=== PATIENT | male | born 1990 | race Caucasian/White ===

== ENCOUNTER 2017-01-28 10:52 | Emergency (ER) | payer MEDICAID ==
[~2017-01-28] VITALS: Ht 188 cm; Wt 100.0 kg
[2017-01-28 10:54] VITALS: Ht 188 cm; Wt 100.0 kg
[2017-01-28] MEDS ORDERED: DIPHTH/TET/ACEL PERTUSS (ADULT) 0.5 ML VIAL IM* ONE (11:30)
[2017-01-28] MEDS ORDERED: LIDOCAINE 1% (MDV) 20 ML INJ SC ONE (11:30)
[2017-01-28] MEDS ORDERED: HYDR-906 PO (11:54)
[2017-01-28] MEDS ORDERED: CEPH500C PO (11:54)
[2017-01-28] MEDS ORDERED: SULF1TAB31 PO (11:54)
[2017-01-28] MEDS ORDERED: NAPR-688 PO (11:54)
--- NOTE | 2017-01-28 12:18 | ERD ---
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 Had bleeding at the site applied pressure. He is not sure when the last time he had a tetanus shot is. He has no other injuries. He is otherwise healthy. ROS All systems reviewed and are negative except as per history of present illness. Medications Home Meds Active Scripts Cephalexin* (Cephalexin*) 500 Mg Capsule, 500 MG PO Q8, #21 CAP Prov:DOMINGUEZ HERNÁNDEZ DO 01/28/17 Sulfamethoxazole/Trimethoprim* (Bactrim Ds* Tablet) 1 Each Tablet, 1 TAB PO BID , #10 TAB Prov:DOMINGUEZ HERNÁNDEZ DO 01/28/17 Hydrocodone/Acetaminophen ([place] 5-325 Tablet) 1 Each Tablet, 1 EACH PO Q6, #10 TAB Prov:DOMINGUEZ HERNÁNDEZ DO 01/28/17 Naproxen* (Naproxen*) 500 Mg Tablet, 500 MG PO BID Y for PAIN, #20 TAB Prov:DOMINGUEZ HERNÁNDEZ DO 01/28/17 Allergies Allergies: Coded Allergies: No Known Allergy (Unverified , 02/23/14) PMhx/Soc Medical and Surgical Hx: pt denies Medical Hx, pt denies Surgical Hx Hx Alcohol Use: Yes Hx Substance Use: No Hx Tobacco Use: No Smoking Status: Never smoker Physical Exam Vitals Vital Signs Date Time Temp Pulse Resp B/P Pulse Ox O2 Delivery O2 Flow Rate FiO2 01/28/17 10:54 98.1 99 18 128/67 99 Physical Exam Const: [] Mild distress Head: Atraumatic Eyes: Normal Conjunctiva Skin: No petechiae or rashes Ext: Right thumb with approximately 3 mm of nail removed as well as 3 mm of tissue with pulp of the thumb visible. No visible bone fragments. Neur: Awake and alert and oriented 3, no focal deficits Psych: Normal Mood and Affect Results 24 hrs Current Medications Medications (Trade) Dose Ordered Sig/Maciel Route PRN Reason Start Time Stop Time Status Last Admin Dose Admin Lidocaine (Xylocaine 1% (Mdv) 20 ml) 20 ml ONCE ONCE SC 01/28/17 11:30 01/28/17 11:31 DC 01/28/17 11:25 Diphtheria/ Tetanus/Acell Pertussis (Adacel) 0.5 ml ONCE ONCE IM* 01/28/17 11:30 01/28/17 11:31 DC 01/28/17 11:21 Procedures/MDM Thumb laceration avulsion with no tissue to be sutured. Patient was in significant pain. Thumb was blocked which alleviated the patient's pain. Wound was then cleaned and dressed. Antibiotic ointment was applied. He was given a Tdap injection. This discussed with the patient he would have hand clinic follow-up and would receive pain medication and antibiotics for his dirty thumb wound to prevent infection to his hand. X-ray was ordered on x-ray showed up to take the patient he was no longer in the waiting room. He may have eloped. I have his discharge paperwork ready and if he returns we will perform an x-ray. Digital nerve block note: The base of the dorsum of the right thumb was cleaned with alcohol. A 17-gauge needle was used to inject 2 cc of lidocaine on each dorsal aspect of the thumb near the bone. Provided good anesthesia. Patient tolerated procedure with no complications. Departure Condition: Stable Referrals: [facility] DOMINGUEZ HERNÁNDEZ DO Jan 28, 2017 12:18
--- NOTE | 2017-01-28 14:07 | RADRPT ---
PROCEDURE: XR Thumb. CLINICAL INDICATION: Possible fracture or laceration TECHNIQUE: Three views of the left thumb are available for review. COMPARISON: 02/23/2014 FINDINGS: There is no acute osseous or articular abnormality. No evidence for fracture. Bone mineral density is preserved. The articular surfaces are smooth without evidence of marginal erosions. The soft tis sues are intact without evidence of radiopaque foreign body. IMPRESSION: 1. No acute osseous abnormality or radiopaque foreign body. RPTAT: RR .Juan Keller MD, Date Time Electronically viewed and signed by .Juan Keller MD, on 01/28/2017 14:07 .d/
== END 2017-01-28 17:00 | disposition home or self-care (01) ==
LOC: FTE 10:52
DX: S61.111A Laceration without foreign body of right thumb with damage to nail, initial encounter (principal); W22.8XXA Striking against or struck by other objects, initial encounter; Y92.89 Other specified places as the place of occurrence of the external cause; Z23 Encounter for immunization
CPT/HCPCS: 73140; 90471; Z7502; Z7610